=== PATIENT | female | born 1960 | race Caucasian/White ===

== ENCOUNTER → 2023-01-16 | Outpatient (CLI) | payer BC ==
[2023-01-16 15:39] LABS: HCT 43.8 % (37.2-46.3); HGB 13.8 g/dL (12.0-15.0); MCH 31.2 pg (27.0-32.0); MCHC 31.5 g/dL (32.0-37.0); MCV 98.9 fL (80.0-97.0); Mean Platelet Volume 9.4 fL (9.5-12.2); NRBC Per 100 WBC 0 /100 WBCS (0.0-0.0); Platelet Count 368 X 10*3/uL (140-440); RBC 4.43 X 10*6/uL (4.10-5.20); RDW 12.3 % (11.5-14.5); WBC 8.31 X 10*3/uL (4.50-10.00)
[2023-01-16 16:01] LABS: C Reactive Protein <0.30 mg/dL (0.00-0.80); Rheumatoid Factor, Qnt <10 IU/mL (0-15)
[2023-01-16 16:20] LABS: Erythrocyte Sedimentation Rate 7 mm/Hr (0-30)
[2023-01-17 14:27] LABS: ANA Pattern Speckled
== END | disposition home or self-care (01) ==
LOC: LABWHC1 08:01
PROVIDERS: ATTEND Anesthesiology Pain Medicine
DX: Z13.828 Encounter for screening for other musculoskeletal disorder (principal)
CPT/HCPCS: 36415; 85027; 85652; 86038; 86039; 86140; 86431

== ENCOUNTER → 2023-01-18 | Outpatient (CLI) | payer BC ==
[2023-01-19 12:24] LABS: HLA B27 NEGATIVE
== END | disposition home or self-care (01) ==
LOC: LABWHC1 14:45
PROVIDERS: ATTEND Anesthesiology Pain Medicine
DX: Z13.828 Encounter for screening for other musculoskeletal disorder (principal)
CPT/HCPCS: 36415; 86812

== ENCOUNTER → 2023-10-17 | Outpatient (CLI) | payer BC ==
[2023-10-17 13:27] LABS: Basophils # (A) 0.05 X 10*3/uL (0.00-0.10); Basophils % (A) 0.5 %; Eosinophils # (A) 0.25 X 10*3/uL (0.04-0.35); Eosinophils % (A) 2.3 %; HCT 43.1 % (37.2-46.3); HGB 13.7 g/dL (12.0-15.0); Lymphocytes # (A) 1.42 X 10*3/uL (0.90-5.00); Lymphocytes % (A) 13.1 %; MCH 31.5 pg (27.0-32.0); MCHC 31.8 g/dL (32.0-37.0); MCV 99.1 FL (80.0-97.0); Mean Platelet Volume 9.2 FL (9.5-12.2); Monocytes # (A) 0.78 X 10*3/uL (0.20-1.00); Monocytes % (A) 7.2 %; NRBC Per 100 WBC 0 X 10*3/uL (0.00-0.01); Neutrophils # (A) 8.33 X 10*3/uL (1.80-7.70); Neutrophils % (A) 76.4 %; Platelet Count 329 X 10*3/uL (140-440); RBC 4.35 X 10*6/uL (4.10-5.20); RDW 12.8 % (11.5-14.5); WBC 10.88 X 10*3/uL (4.50-10.00)
[2023-10-17 13:41] LABS: Microalbumin Creatinine Ratio <10 mg/g Cr (0-30)
[2023-10-17 13:56] LABS: BUN/Creat Ratio 30.14 Ratio (12.00-20.00); Blood Urea Nitrogen 21.1 mg/dL (9.0-27.0); Glucose 99 mg/dL (70-110); LDL Cholesterol,Calculated 133.1 mg/dL (0.0-131.0); Uric Acid 5.4 mg/dL (2.9-7.7); VLDL Calculation 18.56 mg/dL (5.00-40.00)
[2023-10-17 13:57] LABS: ALT 40 U/L (8-44); AST 21 U/L (13-35); Albumin/Globulin Ratio 1.82 Ratio (1.60-3.17); Alkaline Phosphatase 87 U/L (41-126); Calcium 9.1 mg/dL (8.7-10.3); Carbon Dioxide 26.4 mmol/L (21.6-31.8); Chloride 109 mmol/L (96-109); Globulin 2.2 g/dL (1.6-3.3); Potassium 4.9 mmol/L (3.5-5.5); Sodium 142 mmol/L (135-145); Total Bilirubin 0.3 mg/dL (0.3-1.2); Total Protein 6.2 g/dL (6.2-8.2)
== END | disposition home or self-care (01) ==
LOC: LABWHC1 06:58
PROVIDERS: ATTEND Family Medicine
DX: I10 Essential (primary) hypertension (principal); E78.2 Mixed hyperlipidemia
CPT/HCPCS: 36415; 80053; 80061; 82043; 82570; 83036; 84443; 84550; 85025

== ENCOUNTER 2023-12-17 11:21 | Inpatient (IN) | payer BC ==
--- NOTE | 2023-12-17 11:53 | ED ---
Chest Pain HPI - General Chief Complaint: Chest Pain Stated Complaint: Chest Pains Time Seen by Provider: 12/17/23 11:36 Source: patient, EMS, RN notes reviewed Mode of arrival: EMS Limitations: no limitations - History of Present Illness Initial Comments: This is a 63-year-old female who presents to the emergency department for chest pain. Patient states that yesterday she was having pain in the left arm and shoulder. Today she started to develop sharp and stabbing pain in the left side of the chest. She was given nitroglycerin and aspirin by EMS on the route. This did drop her blood pressure lower than it had been initially, but states that it may have improved her pain to some extent. Patient also noted to be febrile on arrival. States that she has felt generally unwell for the last couple of days, but has not measured any fevers. Denies any abdominal pain or shortness of breath. 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 She just moved here from [place], [place], where she used to follow with cardiology. Denies any history of heart attacks, not taking any blood thinners. MD Complaint: chest pain - Related Data Allergies Allergy/AdvReac Type Severity Reaction Status Date / Time Penicillins Allergy Rash/Hives Verified 12/17/23 11:30 Review of Systems ROS Statement: Those systems with pertinent positive or pertinent negative responses have been documented in the HPI. ROS Other: All systems not noted in ROS Statement are negative. Past Medical History Past Medical History: Hypertension Additional Past Medical History / Comment(s): Right BBB, left anterior fasicular block History of Any Multi-Drug Resistant Organisms: None Reported Past Surgical History: Back Surgery, Section Past Psychological History: No Psychological Hx Reported Smoking Status: Current every day smoker, Vaper Past Alcohol Use History: None Reported Past Drug Use History: None Reported General Exam Limitations: no limitations General appearance: alert, in no apparent distress Head exam: Present: atraumatic, normocephalic, normal inspection Respiratory exam: Present: normal lung sounds bilaterally, chest wall tenderness. Absent: respiratory distress, wheezes, rales, rhonchi, stridor Cardiovascular Exam: Present: regular rate, normal rhythm, normal heart sounds. Absent: systolic murmur, diastolic murmur, rubs, gallop, clicks GI/Abdominal exam: Present: soft, tenderness (LUQ), normal bowel sounds. Absent: distended Extremities exam: Present: other (Range of motion of the left upper extremity induces pain) Neurological exam: Present: alert, oriented X3, CN II-XII intact Psychiatric exam: Present: normal affect, normal mood Skin exam: Present: warm, dry, intact, normal color. Absent: rash Course Vital Signs 12/17/23 12/17/23 12/17/23 11:23 12:03 13:13 Temperature 101.7 F H 99.0 F Pulse Rate 109 H 97 87 Respiratory 20 20 20 Rate Blood Pressure 91/55 105/52 98/64 O2 Sat by Pulse 95 99 95 Oximetry 12/17/23 12/17/23 12/17/23 14:51 15:51 17:44 Temperature 98.8 F Pulse Rate 81 87 86 Respiratory 18 20 14 Rate Blood Pressure 99/65 111/76 109/87 O2 Sat by Pulse 95 97 96 Oximetry 12/17/23 12/17/23 18:51 19:06 Temperature 98.6 F Pulse Rate 87 90 Respiratory 18 14 Rate Blood Pressure 102/59 O2 Sat by Pulse 97 98 Oximetry Chest Pain MDM - MDM This is a 63-year-old female who presents to the emergency department for chest pain. Was pt. sent in by a medical professional or institution? @ -No Did you speak to anyone other than the patient for history? @ -No Did you review nursing and triage notes? @ -Yes, and I agree, it is accurate with regards to the patient's symptoms. Were old charts reviewed? @ -No Differential Diagnosis? @ -Differential Chest Pain: Stable Angina, Unstable Angina, STEMI, NSTEMI Aortic Dissection, Pneumothorax, M usculoskeletal, Esophageal Spasm GERD, Cholecystitis, Pancreatitis, Zoster, this is not meant to be an all-inclusive list. EKG interpreted by me (3pts min.)? @ -EKG interpreted by me demonstrating the following: Sinus tachycardia. Right bundle branch block. Ventricular rate 102 bpm, MD interval 133 ms, QRS duration 140 ms, QTc 414 ms. X-rays interpreted by me (1pt min.)? @ -Chest x-ray obtained. My interpretation identifies a left hilar opacity. CT interpreted by me (1pt min.)? @ -CTA of the chest obtained. My interpretation identifies a left upper lobe opacity. U/S interpreted by me (1pt. min.)? @ -Not obtained What testing was considered but not performed? (CT, X-rays, U/S, labs)? Why? @ -None What meds were considered but not given? Why? @ -None Did you discuss the management of the patient with other professionals? @ -Yes, Dr. Guadarrama, who accepts the patient for admission. Did you reconcile home meds? @ -No Was smoking cessation discussed for >3mins.? @ -No Was critical care preformed (if so, how long)? @ -No Were there social determinants of health that impacted care today? How? (Homelessness, low income, unemployed, alcoholism, drug addiction, transportation, low edu. Level, literacy, decrease access to med. care, long-term, rehab)? @ -No Was there de-escalation of care discussed even if they declined? (Discuss DNR or withdrawal of care, Hospice)? @ -No What co-morbidities impacted this encounter? (DM, HTN, Smoking, COPD, CAD, Cancer, CVA, Hep., AIDS, mental health diagnosis, sleep apnea, morbid obesity)? @ -HTN Was patient admitted / discharged? @ -Admitted. Patient was febrile, tachycardic, and hypotensive on arrival. Lab work demonstrates leukocytosis with a white blood cell count of 11.8. D- dimer mildly elevated at 0.85. CRP 19.7. COVID, influenza, and RSV testing were negative. Chest x-ray demonstrated a 5.6 cm left hilar masslike opacity suspicious for neoplasm. CTA of the chest was obtained, which advised that the density in the left upper lobe is most consistent with a pneumonic infiltrate. No evidence of a pulmonary embolus was identified. 2 L bolus of IV fluids administered and she was started on maintenance fluids for hypotension. Patient admitted to medicine for pneumonia with hypotension. She was started on the pneumonia protocol with ceftriaxone and azithromycin. Blood and sputum cultures obtained. Undiagnosed new problem with uncertain prognosis? @ -None Drug Therapy requiring intensive monitoring for toxicity (Heparin, Nitro, Insulin, Cardizem)? @ -None Were any procedures done? @ -None Diagnosis/symptom? @ -Pneumonia, hypotension Acute, or Chronic, or Acute on Chronic? @ -Acute Uncomplicated (without systemic symptoms) or Complicated (systemic symptoms)? @ -Complicated Side effects of treatment? @ -None Exacerbation, Progression, or Severe Exacerbation] @ -Not applicable Poses a threat to life or bodily function? @ -Yes This case was discussed in detail with the attending ED physician, Dr. Murcia. Presentation, findings, and treatment plan discussed in detail as well. Disposition Clinical Impression: Pneumonia, Hypotension Disposition: ADMITTED IP TO THIS HOSP
[2023-12-17] MEDS: SODIUM CHLORIDE 0.9% 2,000 ML IV STA (11:58)
[2023-12-17] MEDS: ACETAMINOPHEN TAB 500 MG TAB PO STA (11:58)
[2023-12-17] MEDS: KETOROLAC 15 MG/ML 1 ML VIAL IVP STA (12:00)
[2023-12-17 12:04] LABS: Basophils % (A) 0 %; Eosinophils # (A) 0.1 k/uL (0-0.7); Eosinophils % (A) 1 %; HCT 31.9 % (34.0-46.0); HGB 10.9 gm/dL (11.4-16.0); Lymphocytes # (A) 0.8 k/uL (1.0-4.8); Lymphocytes % (A) 7 %; MCH 33.3 pg (25.0-35.0); MCHC 34.3 g/dL (31.0-37.0); MCV 96.9 fL (80.0-100.0); Mean Platelet Volume 7.6; Monocytes # (A) 0.8 k/uL (0-1.0); Monocytes % (A) 6 %; Neutrophils % (A) 84 %; Platelet Count 311 k/uL (150-450); RBC 3.29 m/uL (3.80-5.40); RDW 12.9 % (11.5-15.5); WBC 11.8 k/uL (3.8-10.6)
[2023-12-17 12:20] LABS: INR 0.9 (<1.2); Partial Thromboplastin Time 25.6 sec (22.0-30.0); Prothrombin Time 10.1 sec (10.0-12.5)
[2023-12-17 12:22] LABS: ALT 37 U/L (4-34); AST 30 U/L (14-36); African American GFR (CKD) >90 (>60 ml/min/1.73 sqM); Albumin 2.8 g/dL (3.5-5.0); Alkaline Phosphatase 79 U/L (38-126); Amylase 71 U/L (30-110); Anion Gap 9 mmol/L; Blood Urea Nitrogen 17 mg/dL (7-17); Calcium 8.5 mg/dL (8.4-10.2); Carbon Dioxide 18 mmol/L (22-30); Chloride 110 mmol/L (98-107); Glucose 132 mg/dL (74-99); Lipase 86 U/L (23-300); Magnesium 1.9 mg/dL (1.6-2.3); Non-African American GFR(CKD) >90 (>60 ml/min/1.73 sqM); Potassium 3.6 mmol/L (3.5-5.1); Sodium 137 mmol/L (137-145); Total Bilirubin 0.5 mg/dL (0.2-1.3); Total Protein 5.2 g/dL (6.3-8.2)
--- NOTE | 2023-12-17 12:42 | XR ---
EXAMINATION TYPE: XR chest 2V DATE OF EXAM: 12/17/2023 COMPARISON: NONE HISTORY: Chest pain TECHNIQUE: Frontal and lateral views of the chest are obtained. FINDINGS: There is a 5.6 cm masslike opacity with indistinct margins in the left hilar region suspicious for ne oplasm. There is mild to moderate cardiomegaly. The pulmonary vasculature is mildly prominent. There is no pleural effusion or pneumothorax. No focal osseous lesions are seen IMPRESSION: 5.6 cm left hilar masslike opacity suspicious for neoplasm. CT thorax would be useful for further vonda luation.
--- NOTE | 2023-12-17 13:44 | CT ---
EXAMINATION TYPE: CT chest angio for PE DATE OF EXAM: 12/17/2023 COMPARISON: None HISTORY: sob, CHEST PAIN CT DLP: 269 mGycm Automated exposure control for dose reduction was used. CONTRAST: CT Chest for pulmonary embolism performed with with IV Contrast, patient injected with 100 mL of Isov ue 370. FINDINGS: There is a focal partially consolidative density in the left upper lobe anteriorly consistent with a pneumonic infiltrate. There are mild fine scattered interstitial densities and scattered small focal areas of groundglass d ensity in the lungs bilaterally consistent with chronic interstitial changes. There is no pleural effusion or pneumothorax. The great vessels chest are normal and there is no mediastinal, hilar or axillary adenopathy. There are no filling defects within the pulmonary arteries and branches therefore no pulmonary emboli sm. Limited scanning through the upper abdomen reveals thickened or prominent left adrenal gland The osseous structures are intact. IMPRESSION: 1. No evidence of pulmonary embolus 2. Consolidative density in the left upper lobe can most consistent with pneumonic infiltrate. 3. chronic interstitial and groundglass densities as described above. 4. Prominence/thickening of the left adrenal gland. Follow-up recommendations for incidental pulmonary nodules are per [employer] [place] [employer] or [employer] [place] [employer].
[2023-12-17] MEDS ORDERED: PNEUMONIA PROTOCOL UTILIZED 1 EACH MISC PO PRN (13:48)
[2023-12-17 15:06] LABS: Appearance,Urine Clear (Clear); Bilirubin,Urine Negative (Negative); Blood,Urine Negative (Negative); Color,Urine Colorless; Glucose,Urine (UA) Negative (Negative); Ketones,Urine Negative (Negative); Leukocyte Esterase,Urine Negative (Negative); Nitrite,Urine Negative (Negative); PH, Urine 5.5 (5.0-8.0); Protein,Urine Negative (Negative); Specific Gravity,Urine 1.024 (1.001-1.035); Urobilinogen,Urine <2.0 mg/dL (<2.0)
[2023-12-17] MEDS ORDERED: ONDANSETRON 4 MG/2 ML VIAL IVP PRN (15:39)
[2023-12-17] MEDS ORDERED: MORPHINE SULFATE 4 MG/ML SYRINGE IV PRN (15:39)
[2023-12-17] MEDS ORDERED: NALOXONE 0.4 MG/ML 1 ML VIAL IV PRN (15:39)
[2023-12-17] MEDS ORDERED: HYDROcodone/APAP 5-325MG 1 EACH TAB PO PRN (15:39)
[2023-12-17] MEDS ORDERED: IBUPROFEN 400 MG TAB PO PRN (15:39)
[2023-12-17] MEDS: SODIUM CHLORIDE 0.9% 1,000 ML IV STA (15:50)
[2023-12-17] MEDS: AZITHROMYCIN 500 MG in SODIUM CHLORIDE 0.9% 250 ML IVPB STA (15:51)
--- NOTE | 2023-12-17 18:31 | P.HPIM ---
History of Present Illness H&P Date: 12/17/23 Chief Complaint: chest pain 63-year-old woman with a medical history of hypertension presented for evaluation of chest pain. Patient says that she started develop pain which was worse when she took a deep breath, starting yesterday. She also noted that this pain was involved in her left arm and shoulder. She described the quality as sharp and stabbing.. She also felt that this was associated with some dyspnea. She does describe some chills, but was not clear if this was the weather whether she was just colder than usual. She does report fevers. She denies sputum production, cough. In the emergency room, patient was afebrile, 98/64, heart rate 87, 95% on room air. CBC demonstrated leukocytosis to 11.8. Basic metabolic panel showed chloride of 110, CO2 of 18. Liver function test showed ALT of 37. UA was unremarkable. Influenza A, B, RSV, COVID were negative. Coags were unremarkable. D-dimer was elevated to 0.5. Lactic acid was 0.6. Chest x-ray shows 5.6 cm left hilar masslike opacity suspicious for neoplasm. Chest CTA demonstrated findings of consolidative density in the left upper lobe most consistent with pneumonic infiltrate as well as chronic interstitial and groundglass densities. EKG demonstrated sinus tachycardia with right bundle branch block. All Systems reviewed and pertinent positives and negatives noted in HPI, all other symptoms are negative Gen: in no apparent distress, resting comfortably in bed Eyes: PERRL, no scleral injection or icterus HENT: normocephalic, atraumatic, good hearing acuity, moist mucous membranes Neck: no tracheal deviation, full range of motion Resp: good air exchange, breathing comfortably with no accessory muscle use, no tactile fremitus, clear to auscultation bilaterally CVS: good distal perfusion x 4, no pitting edema, regular rate and rhythm without murmurs GI: soft, NTTP, ND, no hepatosplenomegaly : no suprapubic tenderness, no CVAT, ferguson catheter not present MSK: no clubbing, no cyanosis, no noted contractures of extremities Skin: no noted rashes, petechiae; temperature of skin is appropriate Neuro: moving all extremities without signs of weakness, CN II-XII intact Psych: cooperative, euthymic mood, insight and judgment intact Labs and imaging as above Assessment/plan: Community-acquired pneumonia -Admit to observation -Ceftriaxone/azithromycin -Cultures are pending -IV fluids Hypertension -Holding patient's home metoprolol, losartan given borderline blood pressure Past Medical History Past Medical History: Hypertension Additional Past Medical History / Comment(s): Right BBB, left anterior fasicular block History of Any Multi-Drug Resistant Organisms: None Reported Past Surgical History: Back Surgery, Section Past Psychological History: No Psychological Hx Reported Smoking Status: Current every day smoker, Vaper Past Alcohol Use History: None Reported Past Drug Use History: None Reported Medications and Allergies Allergies Allergy/AdvReac Type Severity Reaction Status Date / Time Penicillins Allergy Rash/Hives Verified 12/17/23 11:30 Physical Exam Osteopathic Statement: *. No significant issues noted on an osteopathic structural exam other than those noted in the History and Physical/Consult. Vitals: Vital Signs Temp Pulse Resp BP Pulse Ox 12/17/23 17:44 86 14 109/87 96 12/17/23 15:51 87 20 111/76 97 12/17/23 14:51 98.8 F 81 18 99/65 95 12/17/23 13:13 99.0 F 87 20 98/64 95 12/17/23 12:03 97 20 105/52 99 12/17/23 11:23 101.7 F H 109 H 20 91/55 95 Intake and Output 12/17/23 12/17/23 12/17/23 06:59 14:59 22:59 Other: Weight 64.41 kg Results CBC & Chem 7: 12/17/23 11:55 12/17/23 11:55 Labs: Abnormal Lab Results - Last 24 Hours (Table) 12/17/23 12/17/23 12/17/23 Range/Units 11:55 11:55 11:55 WBC 11.8 H (3.8-10.6) k/uL RBC 3.29 L (3.80-5.40) m/uL Hgb 10.9 L (11.4-16.0) gm/dL Hct 31.9 L (34.0-46.0) % Neutrophils # 10.0 H (1.3-7.7) k/uL Lymphocytes # 0.8 L (1.0-4.8) k/uL D-Dimer 0.85 H (<0.60) mg/L FEU Chloride 110 H (98-107) mmol/L Carbon Dioxide 18 L (22-30) mmol/L Glucose 132 H (74-99) mg/dL Plasma Lactic Acid Anthony (0.7-2.0) mmol/L ALT 37 H (4-34) U/L C-Reactive Protein (<1.0) mg/dL Total Protein 5.2 L (6.3-8.2) g/dL Albumin 2.8 L (3.5-5.0) g/dL 12/17/23 12/17/23 Range/Units 14:22 15:07 WBC (3.8-10.6) k/uL RBC (3.80-5.40) m/uL Hgb (11.4-16.0) gm/dL Hct (34.0-46.0) % Neutrophils # (1.3-7.7) k/uL Lymphocytes # (1.0-4.8) k/uL D-Dimer (<0.60) mg/L FEU Chloride (98-107) mmol/L Carbon Dioxide (22-30) mmol/L Glucose (74-99) mg/dL Plasma Lactic Acid Anthony 0.6 L (0.7-2.0) mmol/L ALT (4-34) U/L C-Reactive Protein 19.7 H (<1.0) mg/dL Total Protein (6.3-8.2) g/dL Albumin (3.5-5.0) g/dL
[2023-12-17] MEDS: ACETAMINOPHEN TAB 325 MG TAB PO PRN (21:55)
[2023-12-18] MEDS: KETOROLAC 15 MG/ML 1 ML VIAL IVP PRN (08:52)
[2023-12-18] MEDS: AZITHROMYCIN 500 MG TAB PO SCH (08:53)
--- NOTE | 2023-12-18 10:15 | P.PN ---
Subjective Progress Note Date: 12/18/23 No new complaints. Still spiking fevers, chills, sweats. Gen: in no apparent distress, resting comfortably in bed Eyes: PERRL, no scleral injection or icterus HENT: normocephalic, atraumatic, good hearing acuity, moist mucous membranes Neck: no tracheal deviation, full range of motion Resp: good air exchange, breathing comfortably with no accessory muscle use, no tactile fremitus, clear to auscultation bilaterally CVS: good distal perfusion x 4, no pitting edema, regular rate and rhythm without murmurs GI: soft, NTTP, ND, no hepatosplenomegaly : no suprapubic tenderness, no CVAT, ferguson catheter not present MSK: no clubbing, no cyanosis, no noted contractures of extremities Skin: no noted rashes, petechiae; temperature of skin is appropriate Neuro: moving all extremities without signs of weakness, CN II-XII intact Psych: cooperative, euthymic mood, insight and judgment intact Hospital Course: 63-year-old woman with a medical history of hypertension presented for evaluation of chest pain. In the emergency room, patient was afebrile, 98/64, heart rate 87, 95% on room air. CBC demonstrated leukocytosis to 11.8. Basic metabolic panel showed chloride of 110, CO2 of 18. Liver function test showed ALT of 37. UA was unremarkable. Influenza A, B, RSV, COVID were negative. Coags were unremarkable. D-dimer was elevated to 0.5. Lactic acid was 0.6. Chest x-ray shows 5.6 cm left hilar masslike opacity suspicious for neoplasm. Chest CTA demonstrated findings of consolidative density in the left upper lobe most consistent with pneumonic infiltrate as well as chronic interstitial and groundglass densities. EKG demonstrated sinus tachycardia with right bundle branch block. Assessment/plan: Community-acquired pneumonia -Admit to observation -Ceftriaxone/azithromycin -Blood Cultures are pending -IV fluids -pulmonology consult given low PC and masslike quality to opacity Hypertension -resuming patient's home metoprolol and losartan today Objective - Vital Signs Vital signs: Vital Signs Temp 99.8 F H 12/18/23 08:00 Pulse 103 H 12/18/23 08:00 Resp 17 12/18/23 08:00 BP 153/78 12/18/23 08:00 Pulse Ox 93 L 12/18/23 08:00 FiO2 Intake & Output 12/17/23 12/18/23 12/18/23 18:59 06:59 18:59 Weight 64.41 kg 64.41 kg Other: Voiding Method Toilet Toilet # Voids 2 - Labs CBC & Chem 7: 12/17/23 11:55 12/17/23 11:55 Labs: Abnormal Lab Results - Last 24 Hours (Table) 12/17/23 12/17/23 12/17/23 Range/Units 11:55 11:55 11:55 WBC 11.8 H (3.8-10.6) k/uL RBC 3.29 L (3.80-5.40) m/uL Hgb 10.9 L (11.4-16.0) gm/dL Hct 31.9 L (34.0-46.0) % Neutrophils # 10.0 H (1.3-7.7) k/uL Lymphocytes # 0.8 L (1.0-4.8) k/uL D-Dimer 0.85 H (<0.60) mg/L FEU Chloride 110 H (98-107) mmol/L Carbon Dioxide 18 L (22-30) mmol/L Glucose 132 H (74-99) mg/dL Plasma Lactic Acid Anthony (0.7-2.0) mmol/L ALT 37 H (4-34) U/L C-Reactive Protein (<1.0) mg/dL Total Protein 5.2 L (6.3-8.2) g/dL Albumin 2.8 L (3.5-5.0) g/dL 12/17/23 12/17/23 Range/Units 14:22 15:07 WBC (3.8-10.6) k/uL RBC (3.80-5.40) m/uL Hgb (11.4-16.0) gm/dL Hct (34.0-46.0) % Neutrophils # (1.3-7.7) k/uL Lymphocytes # (1.0-4.8) k/uL D-Dimer (<0.60) mg/L FEU Chloride (98-107) mmol/L Carbon Dioxide (22-30) mmol/L Glucose (74-99) mg/dL Plasma Lactic Acid Anthony 0.6 L (0.7-2.0) mmol/L ALT (4-34) U/L C-Reactive Protein 19.7 H (<1.0) mg/dL Total Protein (6.3-8.2) g/dL Albumin (3.5-5.0) g/dL
[2023-12-18] MEDS: METOPROLOL SUCCINATE (ER) 25 MG TAB.ER.24H PO SCH (10:23)
[2023-12-18] MEDS: LOSARTAN 50 MG TAB PO SCH (10:23)
[2023-12-18 11:19] LABS: African American GFR (CKD) >90 (>60 ml/min/1.73 sqM); Anion Gap 8 mmol/L; Blood Urea Nitrogen 10 mg/dL (7-17); Calcium 8.2 mg/dL (8.4-10.2); Carbon Dioxide 19 mmol/L (22-30); Chloride 114 mmol/L (98-107); Glucose 77 mg/dL (74-99); Magnesium 2.1 mg/dL (1.6-2.3); Non-African American GFR(CKD) >90 (>60 ml/min/1.73 sqM); Potassium 3.5 mmol/L (3.5-5.1); Sodium 141 mmol/L (137-145)
[2023-12-18 11:29] LABS: Basophils % (A) 0 %; Eosinophils # (A) 0.1 k/uL (0-0.7); Eosinophils % (A) 1 %; HCT 35.2 % (34.0-46.0); HGB 11.6 gm/dL (11.4-16.0); Lymphocytes # (A) 0.8 k/uL (1.0-4.8); Lymphocytes % (A) 7 %; MCH 32.1 pg (25.0-35.0); MCHC 32.8 g/dL (31.0-37.0); MCV 97.9 fL (80.0-100.0); Mean Platelet Volume 7.2; Monocytes # (A) 0.8 k/uL (0-1.0); Monocytes % (A) 7 %; Neutrophils # (A) 9.9 k/uL (1.3-7.7); Neutrophils % (A) 85 %; Platelet Count 371 k/uL (150-450); RDW 12.7 % (11.5-15.5); WBC 11.7 k/uL (3.8-10.6)
--- NOTE | 2023-12-18 14:01 | P.CNPUL ---
History of Present Illness Consult date: 12/18/23 Requesting physician: Ant Alfonso Reason for consult: dyspnea, abnormal CXR/CT Chief complaint: Back and chest pain, shortness of breath History of present illness: This is a very pleasant 63-year-old female patient with a known history of previous COVID-19 pneumonia requiring 1 month in the hospital at [facility] in September 2021, hypertension, tachycardia who presented here to the emergency room yesterday with a 5-day history of left upper scapular area pain radiating around to the front left chest, pain on inspiration, cough, fever and chills. Chest x- ray reveals a 5.6 cm left hilar masslike opacity suspicious for neoplasm versus pneumonia. CT angiogram ruled out pulmonary embolus. There is again noted consolidative density in the left upper lobe most consistent with pneumonic infiltrate. Chronic interstitial and groundglass densities. Prominent thickening of the left adrenal gland. White count 11.7. Hemoglobin 11.6. Platelets 371. Sodium 141. Potassium 3.5. Bicarb 19. BUN 10. Creatinine 0.57. Glucose 77. Procalcitonin negative at 0.09. Viral screen negative. Urine Legionella screen negative. She has been initiated on ceftriaxone and azithromycin. She is seen today in consultation on the regular medical floor. She is currently resting fairly comfortably in bed. No worsening shortness of breath, cough or congestion. No productive sputum. No hemoptysis. She is maintaining good O2 saturations in the 90s on room air. She did have a Tmax of 101.7. Currently 99.8. Slightly tachycardic. Review of Systems REVIEW OF SYSTEMS: CONSTITUTIONAL: Denies any recent significant weight loss or weight gain. EYES: Denies change in vision. EARS, NOSE, MOUTH, THROAT: Denies headaches, denies sore throat. CARDIOVASCULAR: Positive for chest pain, no palpitations or syncopal episodes. RESPIRATORY: Positive for shortness of breath, cough, congestion no hemoptysis. GASTROINTESTINAL: Denies change in appetite, denies abdominal pain GENITOURINARY: Denies hematuria, denies infections. MUSKULOSKELETAL: Denies pain, denies swelling. INTEGUMENTARY: Denies rash, denies eczema. NEUROLOGICAL: Denies recent memory loss, no recent seizure activity. PSYCHIATRIC: Denies anxiety, denies depression. HEMATOLOGIC/LYMPHATIC: Denies anemia, denies enlarged lymph nodes. Past Medical History Past Medical History: Hypertension Additional Past Medical History / Comment(s): Right BBB, left anterior fasicular block History of Any Multi-Drug Resistant Organisms: None Reported Past Surgical History: Back Surgery, Section Past Anesthesia/Blood Transfusion Reactions: No Reported Reaction Past Psychological History: No Psychological Hx Reported Smoking Status: Current every day smoker, Vaper Past Alcohol Use History: None Reported Past Drug Use History: None Reported Medications and Allergies Home Medications Medication Instructions Recorded Confirmed Type Losartan [Cozaar] 50 mg PO DAILY 12/17/23 12/17/23 History Metoprolol Succinate [Metoprolol 25 mg PO BID 12/17/23 12/17/23 History Succinate ER] Allergies Allergy/AdvReac Type Severity Reaction Status Date / Time Penicillins Allergy Rash/Hives Verified 12/17/23 19:47 Physical Exam Vitals: Vital Signs Temp Pulse Pulse Resp BP BP BP 12/18/23 08:00 99.8 F H 103 H 17 153/78 12/18/23 02:00 100.1 F H 102 H 16 134/77 12/17/23 23:08 106 H 18 12/17/23 22:24 98.8 F 106 H 18 131/66 12/17/23 21:55 101 F H 97 18 124/63 12/17/23 19:46 82 16 102/59 12/17/23 19:06 98.6 F 90 14 102/59 12/17/23 18:51 87 18 12/17/23 17:44 86 14 109/87 12/17/23 15:51 87 20 111/76 12/17/23 14:51 98.8 F 81 18 99/65 Pulse Ox 12/18/23 08:00 93 L 12/18/23 02:00 94 L 12/17/23 23:08 12/17/23 22:24 97 12/17/23 21:55 96 12/17/23 19:46 95 12/17/23 19:06 98 12/17/23 18:51 97 12/17/23 17:44 96 12/17/23 15:51 97 12/17/23 14:51 95 Intake and Output 12/17/23 12/18/23 12/18/23 22:59 06:59 14:59 Other: Voiding Method Toilet Toilet # Voids 2 Weight 64.41 kg GENERAL EXAM: Alert, pleasant 63-year-old female, on room air, fairly comfortable in no apparent distress. HEAD: Normocephalic. EYES: Normal reaction of pupils, equal size. NOSE: Clear with pink turbinates. THROAT: No erythema or exudates. NECK: No masses, no JVD. CHEST: No chest wall deformity. LUNGS: Equal air entry with few scattered rhonchi of the left upper lobe. CVS: S1 and S2 normal with no audible murmur, regular rhythm. ABDOMEN: No hepatosplenomegaly, normal bowel sounds, no guarding or rigidity. SPINE: No scoliosis or deformity SKIN: No rashes CENTRAL NERVOUS SYSTEM: No focal deficits, tone is normal in all 4 extremities. EXTREMITIES: There is no peripheral edema. No clubbing, no cyanosis. Peripheral pulses are intact. Results - Laboratory Findings CBC and BMP: 12/18/23 10:17 12/18/23 10:17 PT/INR, D-dimer PT 10.1 sec (10.0-12.5) 12/17/23 11:55 INR 0.9 (<1.2) 12/17/23 11:55 D-Dimer 0.85 mg/L FEU (<0.60) H 12/17/23 11:55 Abnormal lab findings: Abnormal Labs 12/17/23 12/17/23 12/17/23 11:55 11:55 11:55 WBC 11.8 H RBC 3.29 L Hgb 10.9 L Hct 31.9 L Neutrophils # 10.0 H Lymphocytes # 0.8 L D-Dimer 0.85 H Chloride 110 H Carbon Dioxide 18 L Glucose 132 H Plasma Lactic Acid Anthony Calcium ALT 37 H C-Reactive Protein Total Protein 5.2 L Albumin 2.8 L 12/17/23 12/17/23 12/18/23 14:22 15:07 10:17 WBC 11.7 H RBC 3.60 L Hgb Hct Neutrophils # 9.9 H Lymphocytes # 0.8 L D-Dimer Chloride Carbon Dioxide Glucose Plasma Lactic Acid Anthony 0.6 L Calcium ALT C-Reactive Protein 19.7 H Total Protein Albumin 12/18/23 10:17 WBC RBC Hgb Hct Neutrophils # Lymphocytes # D-Dimer Chloride 114 H Carbon Dioxide 19 L Glucose Plasma Lactic Acid Anthony Calcium 8.2 L ALT C-Reactive Protein Total Protein Albumin - Diagnostic Findings Chest x-ray: image reviewed CT scan - chest: image reviewed Assessment and Plan Assessment: Left-sided scapula pain radiating to the left anterior chest, worse with inspiration, secondary to focal partially consolidative density of the left upper lobe anteriorly consistent with pulmonary infiltrate. Neoplasm within the differential. Pulmonary embolism ruled out. Legionella screen negative. Viral screen negative. Procalcitonin negative. History of COVID-19 pneumonia with chronic interstitial and groundglass densit ies requiring 1 month hospitalization in September 2021 at [facility] History of hypertension History of tachycardia Chronic and ongoing tobacco dependence, vaping Plan: The patient was seen and evaluated Chest x-ray, CT angiogram, labs and medications reviewed Continue ceftriaxone and azithromycin for now May require bronchoscopy with biopsy if no improvement Follow-up chest x-ray in a.m. Educated regarding the importance of complete smoking cessation We will continue to follow and make further recommendations based on her clinical status I have personally seen and examined the patient, performed the documentation and the assessment and plan as written. Number of minutes spent on the visit: 20.
[2023-12-19 08:57] LABS: Basophils % (A) 0 %; Eosinophils # (A) 0.1 k/uL (0-0.7); Eosinophils % (A) 1 %; HCT 38.8 % (34.0-46.0); HGB 12.7 gm/dL (11.4-16.0); Lymphocytes # (A) 0.8 k/uL (1.0-4.8); Lymphocytes % (A) 8 %; MCH 31.8 pg (25.0-35.0); MCHC 32.7 g/dL (31.0-37.0); MCV 97.1 fL (80.0-100.0); Mean Platelet Volume 8.2; Monocytes # (A) 0.8 k/uL (0-1.0); Monocytes % (A) 7 %; Neutrophils # (A) 8.8 k/uL (1.3-7.7); Neutrophils % (A) 82 %; Platelet Count 380 k/uL (150-450); RDW 12.7 % (11.5-15.5); WBC 10.7 k/uL (3.8-10.6)
--- NOTE | 2023-12-19 11:30 | P.DS ---
Providers Date of admission: 12/17/23 15:03 Expected date of discharge: 12/19/23 Attending physician: Ant Alfonso MD Consults: 12/18/23 10:12 Consult Physician Routine Consulting Provider: Abhijeet Carey Consult Reason/Comments: pneumonia - low PC, fevers, masslike Do you want consulting provider notified?: Yes Primary care physician: Stated None Hospital Course: 63-year-old woman with a medical history of hypertension presented for evaluation of chest pain. In the emergency room, patient was afebrile, 98/64, heart rate 87, 95% on room air. CBC demonstrated leukocytosis to 11.8. Basic metabolic panel showed chloride of 110, CO2 of 18. Liver function test showed ALT of 37. UA was unremarkable. Influenza A, B, RSV, COVID were negative. Coags were unremarkable. D-Dimer was elevated to 0.5. Lactic acid was 0.6. Chest x-ray shows 5.6 cm left hilar masslike opacity suspicious for neoplasm. Chest CTA demonstrated findings of consolidative density in the left upper lobe most consistent with pneumonic infiltrate as well as chronic interstitial and groundglass densities. EKG demonstrated sinus tachycardia with right bundle branch block. Started on Rocephin and Azithromycin for treatment of PNA. Pulmonary consulted. Symptoms improved. 12/18 Patient was seen and examined. Pleuritic chest pain improved. Breathing improved. Cleared by Pulmonology for discharge. 98% on RA. Continue Augmentin for 7 days to complete a total of 10 days. Toradol PRN for pain prescribed. General: non toxic, no distress, appears at stated age Derm: warm, dry Head: atraumatic, normocephalic, symmetric Eyes: EOMI, no lid lag, anicteric sclera Mouth: no lip lesion, mucus membranes moist Cardiovascular: S1S2 reg, no murmur Lungs: CTA bilateral, no rhonchi, no rales , no accessory muscle use Ext: no gross muscle atrophy, no edema, no contractures Neuro: no focal neuro deficits Psych: Alert, oriented, appropriate affect Discharge Diagnosis: Community acquired PNA Leukocytosis HyperCl metabolic acidosis This complex discharge took 35 minutes to complete. Patient Condition at Discharge: Stable Plan - Discharge Summary Discharge Rx Participant: No New Discharge Prescriptions: New Amoxic-Pot Clav 875-125Mg [Augmentin 875-125] 1 tab PO Q12HR 7 Days #14 tab Ketorolac [Toradol] 10 mg PO Q6HR #20 tab Acetaminophen Tab [Tylenol] 650 mg PO Q6HR PRN tab PRN Reason: Mild Pain Or Fever > 100.5 Continue Metoprolol Succinate [Metoprolol Succinate ER] 25 mg PO BID Losartan [Cozaar] 50 mg PO DAILY Discharge Medication List Losartan [Cozaar] 50 mg PO DAILY 12/17/23 [History] Metoprolol Succinate [Metoprolol Succinate ER] 25 mg PO BID 12/17/23 [History] Acetaminophen Tab [Tylenol] 650 mg PO Q6HR PRN tab 12/19/23 [Rx] Amoxic-Pot Clav 875-125Mg [Augmentin 875-125] 1 tab PO Q12HR 7 Days #14 tab 12/19/23 [Rx] Ketorolac [Toradol] 10 mg PO Q6HR #20 tab 12/19/23 [Rx] Follow up Appointment(s)/Referral(s): Benita Yeung MD [STAFF PHYSICIAN] - 1 Week None,Stated [Primary Care Provider] - 1-2 days Discharge Disposition: HOME SELF-CARE
[2023-12-19 11:39] LABS: BUN/Creat Ratio 20.33 Ratio (12.00-20.00); Blood Urea Nitrogen 12.2 mg/dL (9.0-27.0); Calcium 8.6 mg/dL (8.7-10.3); Carbon Dioxide 19.8 mmol/L (21.6-31.8); Chloride 108 mmol/L (96-109); Glucose 60 mg/dL (70-110); Magnesium 2.3 mg/dL (1.5-2.4); Potassium 4.1 mmol/L (3.5-5.5); Sodium 141 mmol/L (135-145)
--- NOTE | 2023-12-19 12:29 | P.PN ---
Subjective Progress Note Date: 12/19/23 This is a very pleasant 63-year-old female patient with a known history of previous COVID-19 pneumonia requiring 1 month in the hospital at [facility] in September 2021, hypertension, tachycardia who presented here to the emergency room yesterday with a 5-day history of left upper scapular area pain radiating around to the front left chest, pain on inspiration, cough, fever and chills. Chest x- ray reveals a 5.6 cm left hilar masslike opacity suspicious for neoplasm versus pneumonia. CT angiogram ruled out pulmonary embolus. There is again noted consolidative density in the left upper lobe most consistent with pneumonic infiltrate. Chronic interstitial and groundglass densities. Prominent thickeni ng of the left adrenal gland. White count 11.7. Hemoglobin 11.6. Platelets 371. Sodium 141. Potassium 3.5. Bicarb 19. BUN 10. Creatinine 0.57. Glucose 77. Procalcitonin negative at 0.09. Viral screen negative. Urine Legionella screen negative. She has been initiated on ceftriaxone and a zithromycin. She is seen today in consultation on the regular medical floor. She is currently resting fairly comfortably in bed. No worsening shortness of breath, cough or congestion. No productive sputum. No hemoptysis. She is maintaining good O2 saturations in the 90s on room air. She did have a Tmax of 101.7. Currently 99.8. Slightly tachycardic. The patient is seen today December 19, 2023 in follow-up on the regular medical floor. She is sitting up in bed. Awake and alert in no acute distress. Feeling quite a bit better today compared to yesterday. Maintaining good O2 saturations in the 90s on room air. Her follow-up chest x-ray is showing improvement in the left upper lobe infiltrate. She is continued on ceftriaxone and azithromycin. White count 10.7. Hemoglobin 12.7. Sodium 141. Potassium 4.1. Bicarb 20. BUN 12. Creatinine 0.6. Glucose 60. She is continued on Toradol for her chest wall pain. This is improved today as well. Objective - Vital Signs Vital signs: Vital Signs Temp 98.2 F 12/19/23 08:00 Pulse 68 12/19/23 08:00 Resp 16 12/19/23 08:00 BP 148/81 12/19/23 08:00 Pulse Ox 98 12/19/23 09:02 FiO2 21 12/19/23 09:02 Intake & Output 12/18/23 12/19/23 12/19/23 18:59 06:59 18:59 Intake Total 218 Balance 218 Intake: Oral 218 Other: Voiding Method Toilet Toilet Toilet # Voids 3 2 - Exam GENERAL EXAM: Alert, 63-year-old female, on room air, sitting up in bed, comfortable in no apparent distress. HEAD: Normocephalic. EYES: Normal reaction of pupils, equal size. NOSE: Clear with pink turbinates. THROAT: No erythema or exudates. NECK: No masses, no JVD. CHEST: No chest wall deformity. LUNGS: Equal air entry with few scattered rhonchi over the left lung. CVS: S1 and S2 normal with no audible murmur, regular rhythm. ABDOMEN: No hepatosplenomegaly, normal bowel sounds, no guarding or rigidity. SPINE: No scoliosis or deformity SKIN: No rashes CENTRAL NERVOUS SYSTEM: No focal deficits, tone is normal in all 4 extremities. EXTREMITIES: There is no peripheral edema. No clubbing, no cyanosis. Peripheral pulses are intact. - Labs CBC & Chem 7: 12/19/23 07:22 12/19/23 07:22 Labs: Abnormal Lab Results - Last 24 Hours (Table) 12/19/23 12/19/23 Range/Units 07:22 07:22 WBC 10.7 H (3.8-10.6) k/uL Neutrophils # 8.8 H (1.3-7.7) k/uL Lymphocytes # 0.8 L (1.0-4.8) k/uL Carbon Dioxide 19.8 L (21.6-31.8) mmol/L Anion Gap 13.20 H (4.00-12.00) mmol/L BUN/Creatinine Ratio 20.33 H (12.00-20.00) Ratio Glucose 60 L (70-110) mg/dL Calcium 8.6 L (8.7-10.3) mg/dL Microbiology - Last 24 Hours (Table) 12/17/23 14:25 Blood Culture - Preliminary Blood 12/17/23 14:40 Blood Culture - Preliminary Blood Assessment and Plan Assessment: Left-sided scapula pain radiating to the left anterior chest, worse with inspiration, secondary to focal partially consolidative density of the left upper lobe anteriorly consistent with pulmonary infiltrate. Neoplasm within the differential. Pulmonary embolism ruled out. Legionella screen negative. Viral screen negative. Procalcitonin negative. Follow-up chest x-ray is showing improvement. Pain has improved as well. History of COVID-19 pneumonia with chronic interstitial and groundglass densities requiring 1 month hospitalization in September 2021 at [facility] History of hypertension History of tachycardia Chronic and ongoing tobacco dependence, vaping Plan: The patient was seen and evaluated Chest x-ray, labs and medications reviewed Chest x-ray is showing improvement Stable and on room air Cleared for discharge Complete a course of antibiotics Again educated regarding smoking cessation Follow-up in our office in 1 week for follow-up chest x-ray This patient was seen independently by the pulmonary nurse practitioner add ressing pulmonary issues I have personally seen and examined the patient, performed the documentation and the assessment and plan as written. Number of minutes spent on the visit: 23.
[2023-12-19 14:52] VITALS: BP 124/65; PULSE 88; RESP 15; TEMP 98.1
--- NOTE | 2023-12-19 17:13 | CDI ---
Documentation Clarification Form Date: 12/19/2023 04:40:00 PM From: Janessa Driscoll RN, CCDS Phone: [phone] Admit Date: 12/17/2023 03:03:00 PM Patient Name: Terra Sutherland Visit Number: [id number] Discharge Date: 12/19/2023 04:25:00 PM ATTENTION: The Clinical Documentation Specialists (CDI) and [facility] Coding Staff appreciate your assistance in clarifying documentation. Please respond to the clarification below the line at the bottom and electronically sign. The CDI & [facility] Coding staff will review the response and follow-up if needed. Please note: Queries are made part of the Legal Health Record. If you have any questions, please contact the author of this message via ITS. Dr. Lindsay Laguerre The patient was found to have blood pressure 91/55, temp 101.0, heart 97, Leukocytosis 11.8, Chest x-ray showing pneumonia per progress notes. Based on this information and the findings below, is there an additional diagnosis that is clinically appropriate for this patient? History/Risk Factors: Hypertension, Current every day smoker, Vaper Clinical Indicators: 63-year-old female who presents to ED with complaints of chest pain worse when she took a deep breath. She also felt that this was associated with some dyspnea. She describes some chills. She does report fevers. 12/06 VS (11: 23 AM) 99/ 109 20 101.7 95% RA 12/16 VS (11:55 PM) 124/63 97 18 101 96% RA WBC 11.8 Lactic acid: 0.6 Blood cultures: Blood culture Preliminary No Growth after 24 hours (Final pending) EKG: demonstrating the following: Sinus tachycardia. Right bundle branch block. Ventricular rate 102 bpm, CTA: No PE, Consolidative density in the left upper lobe can be most consistent with pneumonic infiltrate. Treatment: .9NS 2,000ML Bolus 12/16 -12/16 Rocephin 2 GM IVPB Once 12/16 then Q 24 HRS X4 Bags -12/18 Azithromycin 500MG IVPB Once 12/16 then 500 MG PO DAILY 12/17-12/18 Is there an additional diagnosis that is clinically appropriate for this patient? [ ] Sepsis, present on admission (Specify) [ x ] No additional diagnosis/not clinically significant [ ] Other, please specify [ ] Unable to determine SIRS Criteria: 2 or more of the following may indicate SIRS Temperature < 96.8F (36C) or > 101.0F (38.3C) Heart Rate > 90 bpm Respiratory Rate > 20 breaths/min or PaCO2 < 32 mmHg White Blood Cell Count > 12,000 or < 4,000 cells/mm3 or > 10% bands (Template Last Reviewed: September 2022) MTDD
--- NOTE | 2023-12-20 15:13 | XR ---
EXAMINATION TYPE: XR chest 2V DATE OF EXAM: 12/19/2023 7:41 AM CLINICAL INDICATION:Female, 63 years old with history of Follow up TERRI infiltrate; [facility] COMPARISON: CTA chest for PE and two-view chest x-ray 12/17/2023 TECHNIQUE: XR chest 2V. Frontal and lateral views of the chest.. FINDINGS: Lines/Tubes/Devices: No indwelling lines are seen. Heart/mediastinum: Heart size upper normal. Unremarkable mediastinal silhouette Pulmonary vascularity: Not increased, Lungs/Pleura: Masslike consolidative opacity projected over the left hilar region and seen to extend anteriorly in the lateral view. Also the heart, apparently localizing to the right upper lobe. Latera l view is limited, however on frontal view this measures 4.4 cm craniocaudally, versus 5.7 cm previou sly, when measured in malleus fashion. No new or worsening infiltrate, pleural effusion, or pneumotho rax. Background chronic lung changes are again noted. Musculoskeletal: No acute osseous abnormality demonstrated in the limits of the exam. Other findings: None. IMPRESSION: Interval decrease in size of consolidative opacity in the left upper lobe. Recommend continued follow -up to resolution after chosen therapy.
== END 2023-12-19 16:25 | disposition home or self-care (01) | DRG 194 ==
LOC: EC 11:21 → 5NMEDONC 15:03 → 6NMEDSUR 21:20
PROVIDERS: ADMIT Internal Medicine; ATTEND Internal Medicine
DX: J18.9 Pneumonia, unspecified organism (principal); E87.20 Acidosis, unspecified; I45.2 Bifascicular block; I95.9 Hypotension, unspecified; F17.290 Nicotine dependence, other tobacco product, uncomplicated; Z86.16 Personal history of COVID-19; Z87.01 Personal history of pneumonia (recurrent); I10 Essential (primary) hypertension; Z79.899 Other long term (current) drug therapy; Z11.52 Encounter for screening for COVID-19; Z71.6 Tobacco abuse counseling; Z88.0 Allergy status to penicillin
CPT/HCPCS: 36415; 71046; 71275; 80048; 80053; 81003; 82150; 83605; 83690; 83735; 84145; 84484; 85025; 85379; 85610; 85730; 86140; 87040; 87449; 87636; 93005; 96361; 96365; 96366; 96367; 96375; 99285

== ENCOUNTER → 2024-01-22 | Outpatient (CLI) | payer BC ==
--- NOTE | 2024-01-25 15:43 | CT ---
EXAMINATION TYPE: CT chest w con DATE OF EXAM: 01/22/2024 COMPARISON: 12/17/2023 HISTORY: f/u pneumonia CT DLP: 130.4 mGycm, Automated exposure control for dose reduction was used. CONTRAST: Performed injected with 100 mL of Isovue 300. TECHNIQUE: Axial images were obtained at 5 mm thick sections. Reconstructed images are reviewed on [employer] computer in the coronal plane. FINDINGS: Portion of the thyroid visualized is normal. Patchy infiltrates in bilateral lung field greater in the upper lung field. Correlate for atypical pneumonia. Some linear thickening is along the anterior left lung with a thickness of 1.3 cm. Findi ngs are nonspecific. Correlate for pneumonia and atelectasis. This has improved from comparison. Unde rlying mass is not excluded at this time. Atelectasis could be considered. Follow-up to clearing is r ecommended. No enlarged mediastinal or hilar adenopathy is evident. The ascending aorta diameter at the level o f the main pulmonary artery is 3.0 cm. The main pulmonary artery diameter at the bifurcation is 2.[address] sections are obtained through the upper abdomen. There are scattered hypodensities within the liver are nonspecific. Differential diagnosis could include metastasis and hemangiomas. Additiona l workup is recommended IMPRESSION: 1. Scattered infiltrates bilaterally greater in the upper lung field. Correlate for atypical pneumon ia. 2. There is an area of thickening along the anterior left lung. Pneumonia atelectasis or underlying m ass is within the differential. Follow-up to clearing is recommended. This has improved from comparis on. 3. Ill-defined hypodensities within the liver. Metastatic disease is not excluded. Additional workup is recommended
== END | disposition home or self-care (01) ==
LOC: RADCTMAIN 13:51
PROVIDERS: ATTEND Internal Medicine
DX: J98.4 Other disorders of lung (principal); J18.1 Lobar pneumonia, unspecified organism; R91.1 Solitary pulmonary nodule
CPT/HCPCS: 71260; Q9967

== ENCOUNTER → 2024-02-13 | Outpatient (CLI) | payer BC ==
--- NOTE | 2024-02-13 08:24 | US ---
EXAMINATION TYPE: US liver DATE OF EXAM: 02/13/2024 COMPARISON: 01/22/2024 CLINICAL INDICATION: Female, 63 years old with history of R93.9 ABNORMAL FINDINGS ON DX IMAGING OF OT H BODY; known hemangiomas seen on CT TECHNIQUE: Multiple sonographic images of the right upper quadrant are obtained. FINDINGS: EXAM MEASUREMENTS: Liver Length: 16.2 cm Gallbladder Wall: 0.2 cm CBD: 0.6 cm Right Kidney: 10.7 x 5.0 x 5.0 cm Pancreas: wnl Liver: multiple hyperechoic areas, probable hemangiomas, largest = 3.2 x 3.0 x 1.8cm Gallbladder: wnl Evidence for sonographic Corbin's sign: no CBD: wnl Right Kidney: 1.0 x 1.1 x 0.9cm mid pole cyst IMPRESSION: 1. No evidence for acute process. 2. Hepatic steatosis. 3. Multiple hyperechoic lesions felt to represent hemangiomas on prior CT in the absence of risk fac tors..
== END | disposition home or self-care (01) ==
LOC: RADUSWWP 07:44
PROVIDERS: ATTEND Internal Medicine
DX: K76.0 Fatty (change of) liver, not elsewhere classified (principal); K76.89 Other specified diseases of liver; D18.03 Hemangioma of intra-abdominal structures; R93.89 Abnormal findings on diagnostic imaging of other specified body structures
CPT/HCPCS: 76705

== ENCOUNTER → 2024-10-29 | Outpatient (CLI) | payer BC ==
[2024-10-29 10:57] LABS: Basophils # (A) 0.02 X 10*3/uL (0.00-0.10); Basophils % (A) 0.3 %; Eosinophils # (A) 0.14 X 10*3/uL (0.04-0.35); Eosinophils % (A) 1.9 %; HCT 42.1 % (37.2-46.3); HGB 13.4 g/dL (12.0-15.0); Lymphocytes # (A) 0.93 X 10*3/uL (0.90-5.00); Lymphocytes % (A) 12.7 %; MCH 31.2 pg (27.0-32.0); MCHC 31.8 g/dL (32.0-37.0); MCV 97.9 FL (80.0-97.0); Mean Platelet Volume 9.2 FL (9.5-12.2); Monocytes % (A) 9.5 %; NRBC Per 100 WBC 0 X 10*3/uL (0.00-0.01); Neutrophils # (A) 5.52 X 10*3/uL (1.80-7.70); Neutrophils % (A) 75.2 %; Platelet Count 321 X 10*3/uL (140-440); RDW 12.7 % (11.5-14.5); WBC 7.34 X 10*3/uL (4.50-10.00)
[2024-10-29 11:19] LABS: ALT 33 U/L (8-44); AST 21 U/L (13-35); Albumin 3.9 g/dL (3.8-4.9); Albumin/Globulin Ratio 1.86 Ratio (1.60-3.17); Alkaline Phosphatase 89 U/L (41-126); BUN/Creat Ratio 18.25 Ratio (12.00-20.00); Blood Urea Nitrogen 14.6 mg/dL (9.0-27.0); Calcium 8.9 mg/dL (8.7-10.3); Carbon Dioxide 23.5 mmol/L (21.6-31.8); Chloride 111 mmol/L (96-109); Chol/HDL Ratio 4.05 Ratio; Globulin 2.1 g/dL (1.6-3.3); Glucose 97 mg/dL (70-110); LDL Cholesterol,Calculated 124.9 mg/dL (0.0-131.0); Sodium 143 mmol/L (135-145); Total Bilirubin 0.3 mg/dL (0.3-1.2)
[2024-10-29 11:26] LABS: Microalbumin Creatinine Ratio <7 mg/g Cr (0-30)
== END | disposition home or self-care (01) ==
LOC: LABWHC1 07:06
PROVIDERS: ATTEND Family Medicine
DX: Z00.00 Encounter for general adult medical examination without abnormal findings (principal); Z12.4 Encounter for screening for malignant neoplasm of cervix; I10 Essential (primary) hypertension; E78.2 Mixed hyperlipidemia; M19.90 Unspecified osteoarthritis, unspecified site
CPT/HCPCS: 36415; 80053; 80061; 82043; 82570; 83036; 84443; 85025

== ENCOUNTER → 2025-01-09 | Outpatient (CLI) | payer BC ==
--- NOTE | 2025-01-09 12:32 | CT ---
EXAMINATION TYPE: CT chest w con CT DLP: 447 mGycm, Automated exposure control for dose reduction was used. DATE OF EXAM: 01/09/2025 11:33 AM COMPARISON: CT chest 01/22/2024, CTA chest 12/17/2023 CLINICAL INDICATION:Female, 64 years old with history of R91.1 LUNG NODULE; [facility], Lung nodule. TECHNIQUE: Multiple axial images were obtained through the chest following the administration of 100 cc of Isovue 300. . Coronal and sagittal reformats reviewed. FINDINGS: LUNGS/ PLEURA: No pleural effusion, pneumothorax, or focal consolidation. Stable punctate left upper lobe 1.4 mm calcified granuloma. Similar scattered reticular groundglass opacities scattered througho ut the lungs. No honeycombing. AIRWAY: Patent and unremarkable.. HEART: Size within normal limits. . No pericardial effusion. No significant coronary artery calcifica tions. MEDIASTINUM: No evidence of adenopathy. VASCULATURE: No aortic aneurysm. MUSCULOSKELETAL: No acute osseous abnormalities. No aggressive osseous lesion. SOFT TISSUES/LYMPH NODES: Unremarkable. LOWER NECK: No significant findings. UPPER ABDOMEN: Bilateral small radical cortical cysts are identified with largest visualized within t he right kidney measuring up to 1.2 cm. No follow up recommended. Multiple hypodense hepatic lesions with some peripheral enhancement redemonstrated. Grossly similar in appearance from prior examination . Largest is exophytically along the left lateral hepatic lobe measuring up to 5.5 cm. Similar thicke osbaldo of the left adrenal gland. IMPRESSION: 1. Similar scattered reticular groundglass opacities throughout the lungs from prior exam. May repres ent postinfectious scarring. No suspicious pulmonary nodule or mass. 2. Multiple hypodense hepatic lesions redemonstrated with some demonstrating peripheral nodular enhan cement. Probably represent hemangiomas. This can be further evaluated with CT or MR abdomen liver mas s protocol as clinically indicated. 3. Nonspecific stable thickening of the left adrenal gland which may represent adrenal hyperplasia. T his can be further evaluated with CT or MR abdomen adrenal mass protocol as clinically indicated. [facility], , 01/09/2025 12:30 PM
== END | disposition home or self-care (01) ==
LOC: RADCTMAIN 10:52
PROVIDERS: ATTEND Internal Medicine
DX: R91.8 Other nonspecific abnormal finding of lung field (principal); K76.9 Liver disease, unspecified; E27.9 Disorder of adrenal gland, unspecified
CPT/HCPCS: 71260; Q9967